=== PATIENT | female | born 1980 | race Caucasian/White ===

== ENCOUNTER 2017-06-25 05:12 | Inpatient (IN) | payer BC ==
[2017-06-25] MEDS ORDERED: Sodium Chloride 0.9% 2.5 ML Syringe FLUSH PRN (05:38)
[2017-06-25] MEDS ORDERED: ceFAZolin 2 GM in Premix Bag 1 BAG IV ONE (05:38)
[2017-06-25] MEDS ORDERED: Sodium Chloride 0.9% 10 ML Syringe FLUSH PRN (05:38)
[2017-06-25] MEDS ORDERED: Oxytocin/0.9 % Sodium Chloride 30 UNIT/500 ML BAG IV SCH (05:45)
[2017-06-25] MEDS ORDERED: Citric Acid/Sodium Citrate Solution 30 ML Cup PO SCH (05:45)
[2017-06-25] MEDS: Lactated Ringers 1,000 ML IV SCH ×2 (06:50→07:35)
[2017-06-25] MEDS ORDERED: Oxytocin 10 Units/1 ML SDV ONE (07:21)
[2017-06-25] MEDS ORDERED: ePHEDrine 50 MG/ML SDV ONE (07:21)
[2017-06-25] MEDS ORDERED: Phenylephrine/Normal Saline 100 MCG/ML 10 ML Syringe ONE (07:21)
[2017-06-25] MEDS ORDERED: Ketorolac 30 MG/ML SDV ONE (07:21)
[2017-06-25] MEDS ORDERED: Morphine PF 1 MG/ML Amp ONE (07:22)
--- NOTE | 2017-06-25 07:49 | PCM.PREANE ---
Preanesthetic Assessment - Anesthesia/Transfusion/Family Hx Anesthesia History: Prior Anesthesia Without Reaction Family History of Anesthesia Reaction: No Transfusion History: No Prior Transfusion(s) - Review of Systems General: No Symptoms Pulmonary: No Symptoms Cardiovascular: No Symptoms Gastrointestinal: No Symptoms Neurological: No Symptoms Other: Reports: None - Physical Assessment NPO Status Date: 06/24/17 Height: 1.7 m Weight: 88.451 kg ASA Class: 2 Mental Status: Alert & Oriented x3 Airway Class: Mallampati = 1 Dentition: Reports: Normal Dentition ROM/Head Extension: Full Lungs: Clear to Auscultation, Normal Respiratory Effort Cardiovascular: Regular Rate, Regular Rhythm - Lab Values: Laboratory Last Values WBC 11.43 K/uL (4.0-11.0) H 06/25/17 06:05 RBC 3.93 M/uL (4.30-5.90) L 06/25/17 06:05 Hgb 11.5 g/dL (12.0-16.0) L 06/25/17 06:05 Hct 34.6 % (36.0-46.0) L 06/25/17 06:05 MCV 88.0 fL (80.0-98.0) 06/25/17 06:05 MCH 29.3 pg (27.0-32.0) 06/25/17 06:05 MCHC 33.2 g/dL (31.0-37.0) 06/25/17 06:05 RDW Std Deviation 43.2 fl (28.0-62.0) 06/25/17 06:05 RDW Coeff of Aye 14 % (11.0-15.0) 06/25/17 06:05 Plt Count 145 K/uL (150-400) L 06/25/17 06:05 MPV 11.10 fL (7.40-12.00) 06/25/17 06:05 Nucleated RBC % 0.0 /100WBC 06/25/17 06:05 Nucleated RBCs # 0 K/uL 06/25/17 06:05 Blood Type AB POSITIVE 06/25/17 06:05 Antibody Screen NEGATIVE 06/25/17 06:05 - Allergies Allergies/Adverse Reactions: Allergies Allergy/AdvReac Type Severity Reaction Status Date / Time ciprofloxacin [From Cipro] Allergy Hives Verified 06/20/17 10:57 doxycycline Allergy Cannot Verified 06/20/17 10:57 Remember levofloxacin [From Levaquin] Allergy Hives Verified 06/20/17 10:57 sulfamethoxazole Allergy Hives Verified 06/20/17 10:57 [From Bactrim] trimethoprim [From Bactrim] Allergy Hives Verified 06/20/17 10:57 - Anesthesia Plan Pre-Op Medication Ordered: Antacids - Acknowledgements Anesthesia Type Planned: Spinal Pt an Appropriate Candidate for the Planned Anesthesia: Yes Alternatives and Risks of Anesthesia Discussed w Pt/Guardian: Yes Pt/Guardian Understands and Agrees with Anesthesia Plan: Yes Additional Comments: PMH: migraine and tachycardia, on chronic betablockers. 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: Neurological History: Reports: Migraines Hematologic History: Reports: B12 Deficiency - Infectious Disease History Infectious Disease History: Reports: Chicken Pox - Past Surgical History Head Surgeries/Procedures: Reports: None GI Surgical History: Reports: Appendectomy, Cholecystectomy Female Surgical History: Reports: Section Other Female Surgeries/Procedures: hx laparoscopic salpingectomy - SUBSTANCE USE Smoking Status *Q: Never Smoker Second Hand Smoke Exposure: No Recreational Drug Use History: No - HOME MEDS Home Medications: Home Meds Cyanocobalamin (Vitamin B-12) [Cyanocobalamin Injection] 1 injection IM ASDIRECTED 06/20/17 [History] Metoprolol Succinate [Toprol XL 50mg] 50 mg PO DAILY 06/20/17 [History] Vit W-Ca,Fe,FA(<1 mg) [ Vitamins] 1 tab PO DAILY 06/20/17 [ History] Promethazine [Phenergan] 1 tab PO ASDIRECTED PRN 06/20/17 [History] - CURRENT (IN HOUSE) MEDS Current Meds: Current Medications Citric Acid/Sodium Citrate (Bicitra Solution) 30 ml PO .ONCE ANEUDY Lactated Ringer's (Ringers, Lactated) 1,000 mls @ 500 mls/hr IV .BOLUS ANEUDY Last Admin: 06/25/17 06:50 Dose: 999 mls/hr Oxytocin/Sodium Chloride (Oxytocin 30 Unit/500 Ml-Ns) 30 unit in 500 mls @ 250 mls/hr IV TITRATE ANEUDY Sodium Chloride (Saline Flush) 10 ml FLUSH ASDIRECTED PRN PRN Reason: Keep Vein Open Sodium Chloride (Saline Flush) 2.5 ml FLUSH ASDIRECTED PRN PRN Reason: Keep Vein Open Discontinued Medications Ephedrine Sulfate (Ephedrine Sulfate) Confirm Administered Dose 50 mg .ROUTE .STK-MED ONE Stop: 06/25/17 07:22 Cefazolin Sodium/Dextrose 2 gm (/ Premix) 50 mls @ 100 mls/hr IV ONETIME ONE Stop: 06/25/17 06:07 Ketorolac Tromethamine (Toradol) Confirm Administered Dose 30 mg .ROUTE .STK- MED ONE Stop: 06/25/17 07:22 Morphine Sulfate (Duramorph Pf) Confirm Administered Dose 3 mg .ROUTE .STK-MED ONE Stop: 06/25/17 07:23 Oxytocin (Pitocin) Confirm Administered Dose 20 unit .ROUTE .STK-MED ONE Stop: 06/25/17 07:22 Phenylephrine HCl (Phenylephrine In Ns 100 Mcg/Ml) Confirm Administered Dose 1 mg .ROUTE .STK-MED ONE Stop: 06/25/17 07:22
[2017-06-25] MEDS ORDERED: ceFAZolin/Dextrose,Iso-Osmotic 2 GM/50 ML Duplex Bag IV ONE (08:24)
[2017-06-25] MEDS: Ketorolac 30 MG/ML SDV IVPUSH SCH ×3 (08:45→20:52)
[2017-06-25] MEDS ORDERED: Lanolin 100% Cream 7 GM Tube TOP PRN (08:57)
[2017-06-25] MEDS ORDERED: diphenhydrAMINE 50 MG/ML SDV IVPUSH PRN (08:57)
[2017-06-25] MEDS ORDERED: Acetaminophen/oxyCODONE 325-5 MG Tab PO PRN ×2 (08:57→08:59)
[2017-06-25] MEDS ORDERED: Ondansetron 4 MG/2 ML SDV IV PRN (08:57)
[2017-06-25] MEDS ORDERED: Bisacodyl 10 MG Supp RECTAL PRN (08:57)
[2017-06-25] MEDS ORDERED: Aluminum Hydroxide/Magnesium Hydroxide/Simethicone Susp 30 ML Cup PO PRN (08:57)
[2017-06-25] MEDS ORDERED: Simethicone 80 MG Tab.Chew PO PRN (08:57)
[2017-06-25] MEDS ORDERED: fentaNYL 100 MCG/2 ML SDV IVPUSH PRN (08:59)
[2017-06-25] MEDS ORDERED: Lactated Ringers 1,000 ML IV SCH (09:00)
--- NOTE | 2017-06-25 09:06 | PCM.OPNOTE ---
- General Post-Op/Procedure Note Date of Surgery/Procedure: 06/25/17 Operative Procedure(s): Repeat LTCS Findings: Term male APGARs 9, 9 weight 3580 gm. Intact placenta with 3V cord Pre Op Diagnosis: 39 week IUP. Previous c section, desires repeat Post-Op Diagnosis: Same Anesthesia Technique: Spinal Primary Surgeon: Maria Eugenia Bello Fluid Replacement, Intraop: 1,200 EBL in mLs: 700 Complications: none known Condition: Good Free Text/Narrative:: Dictation [id number]
--- NOTE | 2017-06-25 09:43 | PCM.POSTAN ---
POST ANESTHESIA ASSESSMENT - MENTAL STATUS Mental Status: Alert, Oriented - RESPIRATORY Respiratory Status: Respiratory Rate WNL, Airway Patent, O2 Saturation Stable - CARDIOVASCULAR CV Status: Pulse Rate WNL, Blood Pressure Stable - GASTROINTESTINAL GI Status: No Symptoms - PAIN Pain Score: 0 (starting to feel pressure at incision) - POST OP HYDRATION Hydration Status: Adequate & Stable
--- NOTE | 2017-06-25 10:01 | OR ---
SURGEON: Maria Eugenia Bello M.D. DATE OF PROCEDURE: 06/25/2017 PREOPERATIVE DIAGNOSES: 1. Thirty-nine weeks intrauterine . 2. Previous section, desires repeat. POSTOPERATIVE DIAGNOSES: 1. Thirty-nine weeks intrauterine . 2. Previous section, desires repeat. PROCEDURE PERFORMED: Repeat low transverse section. ANESTHESIA: Spinal. ESTIMATED BLOOD LOSS: 700 mL. FLUIDS: 1200 mL crystalloid. FINDINGS: Term male, score 9 at 1 minute, 9 at 5 minute. Weight of 3580 g. Intact placenta. Three-vessel cord. Normal-appearing tubes and ovaries. COMPLICATIONS: None. DISPOSITION: The patient to PACU. Infant nursery, stable. PROCEDURE IN DETAIL: Rosey is a 37-year-old G3, P1, A1 at 39 weeks' gestational age, who presents for scheduled repeat delivery this morning. Risks of the procedure have been discussed with her. Proper consent obtained. The patient was taken to the operating room, where she underwent spinal anesthetic, was placed in dorsal supine position with leftward tilt. SCDs to the lower extremities. Baires to gravity. She was prepped and draped in usual sterile fashion. Time-out was performed. Received Ancef prophylactically. Anesthesia was tested and found to be adequate. A previous Pfannenstiel scar was now excised. Subcutaneous tissue was incised down to the level of the rectus fascia, which was incised in midline line and lateralized on either side sharply and bluntly. Superior aspect of fascia was tented upward, dissected sharply and bluntly away from underlying muscle. In a similar fashion, this was performed with the inferior aspect of the fascia. Rectus muscles were now dissected away from the overlying fascia superiorly and inferiorly. Rectus muscle was in the midline. The peritoneum was tented upward and entered sharply. Rectus muscle and peritoneum were now lateralized bluntly. Uterine position and positions were palpated. Self- retaining retractor gently placed. The uterovesical reflection was created, was visualized and bladder flap was created sharply and bluntly. There were some uterovesical adhesions noted from previous delivery. A low transverse hysterotomy was performed. Uterine cavity was entered with blunt end scalpel. Hysterotomy was lateralized bluntly. Amniotomy was performed. Clear fluid was returned. The 's head was flexed. Fundal pressure was applied. The 's head was delivered followed by anterior shoulder, posterior shoulder, and remaining body without difficulty. The infant's oropharynx and nares bulb suctioned, cord clamped x2 and cut. was handed off to attending nursing staff. Cord arterial, cord venous, cord blood sampling was obtained. The placenta was now delivered. Uterine cavity was cleared of all clot and debris. Hysterotomy was repaired using 0 Vicryl in continuous running locked fashion followed by a re-imbricating layer. Area of midline bleeding is replicated with three [id number] sutures. Hemostasis thereafter evident. Posterior aspect of the uterus inspected. No defects or hematomas found be forming. Region was well irrigated and suction dried. Uterus returned to the abdominal cavity. Colonic gutters were cleared of all clot and debris, well irrigated and suction dried. Self-retaining tractor gently removed. Bladder blade was placed. Hysterotomy once again inspected and found to be hemostatic. Rectus muscles reapproximated using 0 Vicryl in inverted mattress suture technique. Anterior aspect of the muscle and posterior aspect of the fascia closely inspected. Any areas of oozing were cauterized. Rectus fascia was now reapproximated using 0 Vicryl in continuous running fashion beginning laterally on either side and meeting in the midline. Subcutaneous tissue was well irrigated and suction dried. Any areas of oozing were cauterized. Skin edges reapproximated using 3-0 Vicryl in a Geo needle in subcuticular fashion. Incisions are now re-imbricated with Mastisol and half-inch Steri-Strips. Uterus remained firm. Hemostasis evident. Sponge, instrument, needle counts are correct x2. The patient is going to PACU in stable condition and the infant to nursery. SID / ASHLEY /[id number]
[2017-06-25] MEDS: Docusate Sodium 100 MG Cap PO SCH ×2 (10:33→20:22)
[2017-06-25] MEDS: Nalbuphine 10 MG/ML 10 ML MDV IVPUSH PRN ×3 (11:40→20:17)
[2017-06-26] MEDS: Nalbuphine 10 MG/ML 10 ML MDV IVPUSH PRN (00:58)
[2017-06-26] MEDS: Ketorolac 30 MG/ML SDV IVPUSH SCH ×2 (03:30→09:02)
--- NOTE | 2017-06-26 08:06 | PCM.PNPP ---
<Inessa Espinoza - Last Filed: 06/26/17 08:03> - General Info Date of Service: 06/26/17 Functional Status: Reports: Pain Controlled, Tolerating Diet, Ambulating, Urinating (catheter was removed this morning) - Review of Systems General: Denies: Fever, Weakness, Fatigue Pulmonary: Denies: Shortness of Breath, Pleuritic Chest Pain, Cough Cardiovascular: Denies: Chest Pain, Palpitations, Dyspnea on Exertion Gastrointestinal: Denies: Abdominal Pain Genitourinary: Denies: Dysuria - General Info Date of Service: 06/26/17 - Patient Data Vital Signs - Most Recent: Last Vital Signs Temp 36.8 C 06/25/17 20:00 Pulse 100 06/26/17 07:00 Resp 20 06/26/17 07:00 BP 106/60 06/26/17 05:00 Pulse Ox 97 06/26/17 07:00 Weight - Most Recent: 88.451 kg I&O - Last 24 Hours: Intake & Output 06/25/17 06/26/17 06/26/17 22:59 06:59 14:59 Intake Total 1487 500 Output Total 650 1100 Balance 837 -600 Lab Results - Last 24 Hours: Laboratory Results - last 24 hr 06/25/17 06/26/17 Range/Units 08:21 04:25 Hgb 9.3 L (12.0-16.0) g/dL Hct 28.4 L (36.0-46.0) % Cord ABG pH 7.343 (7.18-7.38) Cord ABG Base Excess -1 H (-10--2) Cord VBG pH 7.362 (7.25-7.45) Cord VBG Base Excess -1 H (-10--2) Med Orders - Current: Current Medications Al Hydroxide/Mg Hydroxide (Mag-Al Plus) 30 ml PO Q8H PRN PRN Reason: Heartburn Bisacodyl (Dulcolax) 10 mg RECTAL .ONCE PRN PRN Reason: Constipation Citric Acid/Sodium Citrate (Bicitra Solution) 30 ml PO .ONCE ANEUDY Last Admin: 06/25/17 07:49 Dose: 30 ml Diphenhydramine HCl (Benadryl) 25 mg IVPUSH Q6H PRN PRN Reason: Itching or Nausea Docusate Sodium (Colace) 100 mg PO BID [facility] Last Admin: 06/25/17 20:22 Dose: 100 mg Emollient Ointment (Lansinoh Hpa) 0 gm TOP ASDIRECTED PRN PRN Reason: Sore Nipples Fentanyl (Sublimaze) 50 mcg IVPUSH Q5M PRN PRN Reason: Pain (severe 7-10) Stop: 06/26/17 09:00 Lactated Ringer's (Ringers, Lactated) 1,000 mls @ 500 mls/hr IV .BOLUS [facility] Last Admin: 06/25/17 07:35 Dose: 999 mls/hr Oxytocin/Sodium Chloride (Oxytocin 30 Unit/500 Ml-Ns) 30 unit in 500 mls @ 250 mls/hr IV TITRATE [facility] Lactated Ringer's (Ringers, Lactated) 1,000 mls @ 125 mls/hr IV ASDIRECTED [facility] Last Admin: 06/25/17 13:52 Dose: 125 mls/hr Ibuprofen (Motrin) 800 mg PO Q8H PRN PRN Reason: mild pain or fever Ketorolac Tromethamine (Toradol) 30 mg IVPUSH Q6H [facility] Stop: 06/26/17 09:01 Last Admin: 06/26/17 03:30 Dose: 30 mg Nalbuphine HCl (Nubain) 2.5 mg IVPUSH Q3H PRN PRN Reason: Pruritis Stop: 06/26/17 09:00 Last Admin: 06/26/17 00:58 Dose: 2.5 mg Ondansetron HCl (Zofran) 4 mg IV Q4H PRN PRN Reason: Nausea/Vomiting Oxycodone/Acetaminophen (Percocet 325-5 Mg) 1 tab PO Q4H PRN PRN Reason: Pain (moderate 4-6) Oxycodone/Acetaminophen (Percocet 325-5 Mg) 2 tab PO Q4H PRN PRN Reason: Pain (moderate 4-6) Oxycodone/Acetaminophen (Percocet 325-5 Mg) 1 tab PO ONETIME PRN PRN Reason: Pain (moderate 4-6) Simethicone (Simethicone) 80 mg PO Q4H PRN PRN Reason: Gas Sodium Chloride (Saline Flush) 10 ml FLUSH ASDIRECTED PRN PRN Reason: Keep Vein Open Sodium Chloride (Saline Flush) 2.5 ml FLUSH ASDIRECTED PRN PRN Reason: Keep Vein Open Discontinued Medications Cefazolin Sodium/Dextrose (Ancef) Confirm Administered Dose 2 gm IV .STK-MED ONE Stop: 06/25/17 08:25 Ephedrine Sulfate (Ephedrine Sulfate) Confirm Administered Dose 50 mg .ROUTE .STK-MED ONE Stop: 06/25/17 07:22 Cefazolin Sodium/Dextrose 2 gm (/ Premix) 50 mls @ 100 mls/hr IV ONETIME ONE Stop: 06/25/17 06:07 Ketorolac Tromethamine (Toradol) Confirm Administered Dose 30 mg .ROUTE .STK- MED ONE Stop: 06/25/17 07:22 Morphine Sulfate (Duramorph Pf) Confirm Administered Dose 3 mg .ROUTE .STK-MED ONE Stop: 06/25/17 07:23 Oxytocin (Pitocin) Confirm Administered Dose 20 unit .ROUTE .STK-MED ONE Stop: 06/25/17 07:22 Phenylephrine HCl (Phenylephrine In Ns 100 Mcg/Ml) Confirm Administered Dose 1 mg .ROUTE .STK-MED ONE Stop: 06/25/17 07:22 - Interaction Infant Disposition, : in Room with Family Infant Interaction: Holding Infant Feeding: Breastfed Infant; Nursed Well Support Person: - Recovery Exam Fundal Tone: Firm Fundal Level: At Umbilicus Fundal Placement: Midline Lochia Amount: Scant Lochia Color: Rubra/Red Urinary Elimination: Indwelling Catheter - Exam General: Alert, Oriented Neck: Supple Lungs: Clear to Auscultation, Normal Respiratory Effort Cardiovascular: Regular Rate, Regular Rhythm GI/Abdominal Exam: Normal Bowel Sounds, Soft, Non-Tender, No Organomegaly, No Distention Extremities: Normal Inspection, Normal Capillary Refill, Pedal Edema (trace) Skin: Warm - Problem List & Annotations (1) delivery delivered SNOMED Code(s): 261934203 Code(s): O82 - ENCOUNTER FOR DELIVERY WITHOUT INDICATION Status: Acute Current Visit: Yes - Problem List Review Problem List Initiated/Reviewed/Updated: Yes - Assessment Assessment:: POD#1 from RLTCS. Minimal pain and lochia. Breast feeding well. Can shower and ambulate halls today. Anticipate discharge home tomorrow. - Plan Plan:: Continue routine post-op cares. Aim for discharge home tomorrow. <Maria Eugenia Bello - Last Filed: 06/26/17 10:20> - Patient Data Vital Signs - Most Recent: Last Vital Signs Temp 36.8 C 06/25/17 20:00 Pulse 100 06/26/17 07:00 Resp 20 06/26/17 07:00 BP 106/60 06/26/17 05:00 Pulse Ox 97 06/26/17 07:00 I&O - Last 24 Hours: Intake & Output 06/25/17 06/26/17 06/26/17 22:59 06:59 14:59 Intake Total 1487 500 Output Total 650 1100 Balance 837 -600 Lab Results - Last 24 Hours: Laboratory Results - last 24 hr 06/26/17 Range/Units 04:25 Hgb 9.3 L (12.0-16.0) g/dL Hct 28.4 L (36.0-46.0) % Med Orders - Current: Current Medications Al Hydroxide/Mg Hydroxide (Mag-Al Plus) 30 ml PO Q8H PRN PRN Reason: Heartburn Bisacodyl (Dulcolax) 10 mg RECTAL .ONCE PRN PRN Reason: Constipation Citric Acid/Sodium Citrate (Bicitra Solution) 30 ml PO .ONCE [facility] Last Admin: 06/25/17 07:49 Dose: 30 ml Diphenhydramine HCl (Benadryl) 25 mg IVPUSH Q6H PRN PRN Reason: Itching or Nausea Docusate Sodium (Colace) 100 mg PO BID [facility] Last Admin: 06/26/17 09:02 Dose: 100 mg Emollient Ointment (Lansinoh Hpa) 0 gm TOP ASDIRECTED PRN PRN Reason: Sore Nipples Lactated Ringer's (Ringers, Lactated) 1,000 mls @ 500 mls/hr IV .BOLUS [facility] Last Admin: 06/25/17 07:35 Dose: 999 mls/hr Oxytocin/Sodium Chloride (Oxytocin 30 Unit/500 Ml-Ns) 30 unit in 500 mls @ 250 mls/hr IV TITRATE ANEUDY Lactated Ringer's (Ringers, Lactated) 1,000 mls @ 125 mls/hr IV ASDIRECTED [facility] Last Admin: 06/25/17 13:52 Dose: 125 mls/hr Ibuprofen (Motrin) 800 mg PO Q8H PRN PRN Reason: mild pain or fever Ondansetron HCl (Zofran) 4 mg IV Q4H PRN PRN Reason: Nausea/Vomiting Oxycodone/Acetaminophen (Percocet 325-5 Mg) 1 tab PO Q4H PRN PRN Reason: Pain (moderate 4-6) Oxycodone/Acetaminophen (Percocet 325-5 Mg) 2 tab PO Q4H PRN PRN Reason: Pain (moderate 4-6) Oxycodone/Acetaminophen (Percocet 325-5 Mg) 1 tab PO ONETIME PRN PRN Reason: Pain (moderate 4-6) Simethicone (Simethicone) 80 mg PO Q4H PRN PRN Reason: Gas Sodium Chloride (Saline Flush) 10 ml FLUSH ASDIRECTED PRN PRN Reason: Keep Vein Open Sodium Chloride (Saline Flush) 2.5 ml FLUSH ASDIRECTED PRN PRN Reason: Keep Vein Open Discontinued Medications Cefazolin Sodium/Dextrose (Ancef) Confirm Administered Dose 2 gm IV .STK-MED ONE Stop: 06/25/17 08:25 Ephedrine Sulfate (Ephedrine Sulfate) Confirm Administered Dose 50 mg .ROUTE .STK-MED ONE Stop: 06/25/17 07:22 Fentanyl (Sublimaze) 50 mcg IVPUSH Q5M PRN PRN Reason: Pain (severe 7-10) Stop: 06/26/17 09:00 Cefazolin Sodium/Dextrose 2 gm (/ Premix) 50 mls @ 100 mls/hr IV ONETIME ONE Stop: 06/25/17 06:07 Ketorolac Tromethamine (Toradol) Confirm Administered Dose 30 mg .ROUTE .STK- MED ONE Stop: 06/25/17 07:22 Ketorolac Tromethamine (Toradol) 30 mg IVPUSH Q6H ANEUDY Stop: 06/26/17 09:01 Last Admin: 06/26/17 09:02 Dose: 30 mg Morphine Sulfate (Duramorph Pf) Confirm Administered Dose 3 mg .ROUTE .STK-MED ONE Stop: 06/25/17 07:23 Nalbuphine HCl (Nubain) 2.5 mg IVPUSH Q3H PRN PRN Reason: Pruritis Stop: 06/26/17 09:00 Last Admin: 06/26/17 00:58 Dose: 2.5 mg Oxytocin (Pitocin) Confirm Administered Dose 20 unit .ROUTE .STK-MED ONE Stop: 06/25/17 07:22 Phenylephrine HCl (Phenylephrine In Ns 100 Mcg/Ml) Confirm Administered Dose 1 mg .ROUTE .STK-MED ONE Stop: 06/25/17 07:22 - My Orders Last 24 Hours: My Active Orders 06/25/17 Lunch Regular Diet [DIET] - Plan Plan:: patient seen and examined-agree with above
[2017-06-26] MEDS: Docusate Sodium 100 MG Cap PO SCH ×2 (09:02→20:40)
[2017-06-26] MEDS: Ibuprofen 800 MG Tab PO PRN ×2 (15:05→23:24)
[2017-06-26] MEDS: Acetaminophen/oxyCODONE 325-5 MG Tab PO PRN (20:40)
[2017-06-27] MEDS: Acetaminophen/oxyCODONE 325-5 MG Tab PO PRN ×3 (01:19→09:28)
[2017-06-27] MEDS: Ibuprofen 800 MG Tab PO PRN (08:04)
[2017-06-27] MEDS: Docusate Sodium 100 MG Cap PO SCH (08:05)
--- NOTE | 2017-06-27 09:05 | PCM.PNPP ---
- General Info Date of Service: 06/27/17 Functional Status: Reports: Pain Controlled, Tolerating Diet, Ambulating, Urinating - Review of Systems General: Denies: Fever, Weakness Pulmonary: Denies: Shortness of Breath Cardiovascular: Denies: Chest Pain, Palpitations, Lightheadedness Gastrointestinal: Reports: Abdominal Pain (incisional, controlled overall), Flatus. Denies: Nausea, Vomiting Genitourinary: Denies: Flank Pain Neurological: Reports: No Symptoms - General Info Date of Service: 06/27/17 - Patient Data Vital Signs - Most Recent: Last Vital Signs Temp 36.9 C 06/27/17 08:00 Pulse 97 06/27/17 08:00 Resp 14 06/27/17 08:00 BP 111/68 06/27/17 08:00 Pulse Ox 98 06/27/17 08:00 Weight - Most Recent: 88.451 kg Med Orders - Current: Current Medications Al Hydroxide/Mg Hydroxide (Mag-Al Plus) 30 ml PO Q8H PRN PRN Reason: Heartburn Bisacodyl (Dulcolax) 10 mg RECTAL .ONCE PRN PRN Reason: Constipation Citric Acid/Sodium Citrate (Bicitra Solution) 30 ml PO .ONCE [facility] Last Admin: 06/25/17 07:49 Dose: 30 ml Diphenhydramine HCl (Benadryl) 25 mg IVPUSH Q6H PRN PRN Reason: Itching or Nausea Docusate Sodium (Colace) 100 mg PO BID [facility] Last Admin: 06/27/17 08:05 Dose: 100 mg Emollient Ointment (Lansinoh Hpa) 0 gm TOP ASDIRECTED PRN PRN Reason: Sore Nipples Lactated Ringer's (Ringers, Lactated) 1,000 mls @ 500 mls/hr IV .BOLUS [facility] Last Admin: 06/25/17 07:35 Dose: 999 mls/hr Oxytocin/Sodium Chloride (Oxytocin 30 Unit/500 Ml-Ns) 30 unit in 500 mls @ 250 mls/hr IV TITRATE ANEUDY Lactated Ringer's (Ringers, Lactated) 1,000 mls @ 125 mls/hr IV ASDIRECTED [facility] Last Admin: 06/25/17 13:52 Dose: 125 mls/hr Ibuprofen (Motrin) 800 mg PO Q8H PRN PRN Reason: mild pain or fever Last Admin: 06/27/17 08:04 Dose: 800 mg Ondansetron HCl (Zofran) 4 mg IV Q4H PRN PRN Reason: Nausea/Vomiting Oxycodone/Acetaminophen (Percocet 325-5 Mg) 1 tab PO Q4H PRN PRN Reason: Pain (moderate 4-6) Last Admin: 06/27/17 05:23 Dose: 1 tab Oxycodone/Acetaminophen (Percocet 325-5 Mg) 2 tab PO Q4H PRN PRN Reason: Pain (moderate 4-6) Oxycodone/Acetaminophen (Percocet 325-5 Mg) 1 tab PO ONETIME PRN PRN Reason: Pain (moderate 4-6) Simethicone (Simethicone) 80 mg PO Q4H PRN PRN Reason: Gas Sodium Chloride (Saline Flush) 10 ml FLUSH ASDIRECTED PRN PRN Reason: Keep Vein Open Sodium Chloride (Saline Flush) 2.5 ml FLUSH ASDIRECTED PRN PRN Reason: Keep Vein Open Discontinued Medications Cefazolin Sodium/Dextrose (Ancef) Confirm Administered Dose 2 gm IV .STK-MED ONE Stop: 06/25/17 08:25 Ephedrine Sulfate (Ephedrine Sulfate) Confirm Administered Dose 50 mg .ROUTE .STK-MED ONE Stop: 06/25/17 07:22 Fentanyl (Sublimaze) 50 mcg IVPUSH Q5M PRN PRN Reason: Pain (severe 7-10) Stop: 06/26/17 09:00 Cefazolin Sodium/Dextrose 2 gm (/ Premix) 50 mls @ 100 mls/hr IV ONETIME ONE Stop: 06/25/17 06:07 Last Admin: 06/26/17 10:34 Dose: Not Given Ketorolac Tromethamine (Toradol) Confirm Administered Dose 30 mg .ROUTE .STK- MED ONE Stop: 06/25/17 07:22 Ketorolac Tromethamine (Toradol) 30 mg IVPUSH Q6H ANEUDY Stop: 06/26/17 09:01 Last Admin: 06/26/17 09:02 Dose: 30 mg Morphine Sulfate (Duramorph Pf) Confirm Administered Dose 3 mg .ROUTE .STK-MED ONE Stop: 06/25/17 07:23 Nalbuphine HCl (Nubain) 2.5 mg IVPUSH Q3H PRN PRN Reason: Pruritis Stop: 06/26/17 09:00 Last Admin: 06/26/17 00:58 Dose: 2.5 mg Oxytocin (Pitocin) Confirm Administered Dose 20 unit .ROUTE .STK-MED ONE Stop: 06/25/17 07:22 Phenylephrine HCl (Phenylephrine In Ns 100 Mcg/Ml) Confirm Administered Dose 1 mg .ROUTE .STK-MED ONE Stop: 06/25/17 07:22 - Interaction Infant Disposition, : in Room with Family Infant Interaction: Holding Infant Feeding: Breastfed Infant; Nursed Well Support Person: - Recovery Exam Fundal Tone: Firm Fundal Level: At Umbilicus Fundal Placement: Midline Lochia Amount: Scant Lochia Color: Rubra/Red Bladder Status: Voiding Urinary Elimination: Indwelling Catheter - Exam General: Alert, Oriented Lungs: Normal Respiratory Effort Cardiovascular: Regular Rate, Regular Rhythm GI/Abdominal Exam: Normal Bowel Sounds, Soft Extremities: Pedal Edema (trace). No: Tracey's Sign Skin: Warm, Dry, Intact Wound/Incisions: Healing Well. No: Drainage, Erythema Psy/Mental Status: Alert, Normal Affect - Problem List & Annotations (1) delivery delivered SNOMED Code(s): 075381888 Code(s): O82 - ENCOUNTER FOR DELIVERY WITHOUT INDICATION Status: Acute Current Visit: Yes - Problem List Review Problem List Initiated/Reviewed/Updated: Yes - Assessment Assessment:: POD#2 from RLTCS. - Plan Plan:: Patient is doing well--she would like to go home. Discharge to home today. Infection and bleeding warnings are reviewed. Discharge instructions reviewed. Follow up at [facility] 2 and 6 weeks.
== END 2017-06-27 10:50 | disposition home or self-care (01) | DRG 540 ==
LOC: MW.OB 05:12
PROVIDERS: ADMIT Obstetrics & Gynecology; ATTEND Obstetrics & Gynecology
PROC: 10D00Z1 Extraction of Products of Conception, Low, Open Approach (ICD-10-PCS; principal; 2017-06-25)
DX: O34.211 Maternal care for low transverse scar from previous cesarean delivery (principal); Z3A.39 39 weeks gestation of pregnancy; Z37.0 Single live birth
CPT/HCPCS: 36415; 59025; 82803; 85014; 85018; 85027; 86850; 86900; 86901; A9270-GY; J0690; J1885; J2274; J2300; J2590; J7120